=== PATIENT | male | born 2000 | race Caucasian/White ===

== ENCOUNTER 2019-04-24 23:51 | Emergency (ER) | payer SELFPAY ==
[~2019-04-24] VITALS: Ht 167.6 cm; Wt 95.5 kg
[2019-04-25] MEDS ORDERED: acetaminophen 325mg tablet PO ONE (00:20)
[2019-04-25 00:44] VITALS: BP 148/85
== END 2019-04-25 00:47 | disposition home or self-care (01) ==
LOC: ER 23:52
DX: S00.03XA Contusion of scalp, initial encounter (principal); W22.8XXA Striking against or struck by other objects, initial encounter; Y93.89 Activity, other specified; Y92.89 Other specified places as the place of occurrence of the external cause; Y99.8 Other external cause status
CPT/HCPCS: 99282

== ENCOUNTER → 2019-06-23 | Emergency (ER) | payer OTHER, BC ==
[~2019-06-23] VITALS: Ht 167.6 cm; Wt 100.0 kg
[~2019-06-23] MED LIST: CYCL-1 PO; ibuprofen tablet 400 MG TABLET PO ONE
[2019-06-23 16:31] VITALS: BP 126/72
== END | disposition home or self-care (01) ==
LOC: ER 16:20
DX: M54.5 Low back pain (principal); Z79.899 Other long term (current) drug therapy; V47.5XXA Car driver injured in collision with fixed or stationary object in traffic accident, initial encounter; Y93.89 Activity, other specified; Y92.488 Other paved roadways as the place of occurrence of the external cause; Y99.8 Other external cause status
CPT/HCPCS: 71045; 99283; 99284

== ENCOUNTER 2019-12-13 14:17 | Emergency (ER) | payer BC ==
[~2019-12-13] VITALS: Ht 167.6 cm; Wt 105.0 kg
[~2019-12-13 14:17] MED LIST changes: -ibuprofen tablet 400 MG TABLET PO ONE
[2019-12-13] MEDS ORDERED: diphenhydrAMINE 50 mg/ml inj IV ONE (14:55)
[2019-12-13] MEDS ORDERED: methylPREDNISolone sod succ 125mg/2ml vial IV ONE (14:55)
[2019-12-13] MEDS ORDERED: normal saline 1000ML IV soln IVB ONE (15:10)
[2019-12-13 15:36] LABS: BASOPHILS # (AUTO) 0.1 X10'3 (0-0.2); BASOPHILS % (AUTO) 0.5 % (0-1); EOSINOPHILS # (AUTO) 0.4 X10'3 (0-0.9); HEMATOCRIT 44.3 % (42.0-52.0); HEMOGLOBIN 15.2 g/dl (14.0-17.9); LYMPHOCYTES # (AUTO) 1.8 X10'3 (1.1-4.8); LYMPHOCYTES % (AUTO) 14.1 % (21-51); MEAN CORPUSCULAR HEMOGLOBIN 29.4 PG (27.0-31.0); MEAN CORPUSCULAR HGB CONC 34.3 g/dL (33.0-36.5); MEAN CORPUSCULAR VOLUME 85.8 FL (78-98); MEAN PLATELET VOLUME 8.8 FL (7.4-10.4); MONOCYTES # (AUTO) 0.8 X10'3 (0-0.9); MONOCYTES % (AUTO) 6.4 % (2-12); NEUTROPHILS # (AUTO) 9.9 X10'3 (1.8-7.7); PLATELET COUNT 201 X10'3 (140-440); RED BLOOD COUNT 5.17 X10'6 (4.70-6.10); RED CELL DISTRIBUTION WIDTH 13.4 % (11.5-14.5)
[2019-12-13 15:56] LABS: ALANINE AMINOTRANSFERASE 45 U/L (12-78); ALBUMIN 4.2 G/DL (3.4-5.0); ALBUMIN/GLOBULIN RATIO 1.1 (1.1-1.5); ALKALINE PHOSPHATASE 138 IU/L (46-116); ANION GAP 11 (8-16); ASPARTATE AMINO TRANSFERASE 13 U/L (10-37); BILIRUBIN,TOTAL 0.5 MG/DL (0.1-1.0); BLOOD UREA NITROGEN 10 MG/DL (7-18); BUN/CREATININE RATIO 9.7 (5.4-32.0); CALCIUM 9.1 MG/DL (8.5-10.1); CHLORIDE 102 MMOL/L (99-107); CREATININE 1.03 MG/DL (0.60-1.10); GLUCOSE 92 MG/DL (70-104); POTASSIUM 3.5 MMOL/L (3.5-5.1); SODIUM 141 MMOL/L (135-145); TOTAL PROTEIN 8.1 G/DL (6.4-8.2); eGFR > 90 ML/MIN
[2019-12-13 17:36] LABS: MONOTEST NEGATIVE (Neg)
[2019-12-13 17:58] VITALS: BP 130/80
[2019-12-13] MEDS ORDERED: LIDOcaine Viscous 15ml cup MM STA (18:07)
[2019-12-13] MEDS ORDERED: PRED20TA PO (18:13)
[2019-12-13] MEDS ORDERED: PENI500T2 PO (18:13)
== END 2019-12-13 18:18 | disposition home or self-care (01) ==
LOC: ER 14:18
DX: J02.9 Acute pharyngitis, unspecified (principal); Z79.899 Other long term (current) drug therapy
CPT/HCPCS: 36415; 80053; 85025; 86308; 87081; 87880; 96361; 96374; 96375; 99284; J1200; J2930; J7030

== ENCOUNTER 2021-12-12 21:04 | Emergency (ER) | payer BC ==
[~2021-12-12] VITALS: Ht 167.6 cm; Wt 106.8 kg
[2021-12-12 21:09] VITALS: BP 127/79
== END 2021-12-13 04:56 | disposition left against medical advice (07) ==
LOC: ER 21:05
DX: N48.29 Other inflammatory disorders of penis (principal); Z53.21 Procedure and treatment not carried out due to patient leaving prior to being seen by health care provider